=== PATIENT | female | born 1980 | race Two or more races ===

== ENCOUNTER 2018-05-05 16:15 | Inpatient (IN) | payer MEDICAID, OTHER ==
[~2018-05-05] VITALS: Ht 157.5 cm; Wt 75.7 kg
[2018-05-05] MEDS ORDERED: KETOROLAC 30MG/ML VIAL IM ONE (17:45)
[2018-05-05] MEDS ORDERED: MORPHINE SULFATE 10 MG/ML CPJ IM ONE (22:15)
[2018-05-06 00:49] LABS: BASOPHILS % 0.7 % (0.0-2.0); EOSINOPHILS % 0.2 % (0.0-5.0); HEMATOCRIT. 37.7 % (36.0-48.0); LYMPHOCYTES % 24.3 % (20.0-50.0); MEAN CORPUSCULAR HEMOGLOBIN 31.8 pg (28.0-32.0); MEAN CORPUSCULAR VOLUME 92.1 fL (81.0-99.0); MEAN PLATELET VOLUME 9.4 fl (7.4-10.4); MONOCYTES % 4.5 % (2.0-8.0); NEUTROPHILS % 70.3 % (40.0-76.0); PLATELET 302 x1000/uL (130-400); RED BLOOD CELL COUNT 4.09 mill/uL (4.2-5.4); RED CELL DISTRIBUTION WIDTH 13.2 % (11.6-14.6)
[2018-05-06 00:53] LABS: INR 1.1; PROTHROMBIN TIME 11.4 sec (9.1-11.1)
[2018-05-06 00:56] LABS: CHLORIDE 105 mEq/L (98-107)
[2018-05-06 03:57] VITALS: BP 127/86
[2018-05-06 04:00] VITALS: BP 127/86
[2018-05-06] MEDS ORDERED: MORPHINE SULFATE 10MG/5ML ORAL SOLN UDC PO PRN (04:00)
[2018-05-06 08:00] VITALS: BP 96/56
[2018-05-06] MEDS ORDERED: ONDANSETRON HCL 4MG/2ML INJ IV PRN (08:30)
[2018-05-06 09:31] LABS: BASOPHILS % 0.9 % (0.0-2.0); EOSINOPHILS % 1.4 % (0.0-5.0); HEMATOCRIT. 39.2 % (36.0-48.0); HEMOGLOBIN. 13.2 g/dL (12.0-16.0); LYMPHOCYTES % 34.4 % (20.0-50.0); MEAN CORPUSCULAR HEMOGLOBIN 31.5 pg (28.0-32.0); MEAN CORPUSCULAR VOLUME 93.2 fL (81.0-99.0); MEAN PLATELET VOLUME 9.5 fl (7.4-10.4); NEUTROPHILS % 57.3 % (40.0-76.0); PLATELET 290 x1000/uL (130-400); RED CELL DISTRIBUTION WIDTH 13.2 % (11.6-14.6)
[2018-05-06 09:43] LABS: CHLORIDE 108 mEq/L (98-107)
[2018-05-06 12:00] VITALS: BP 87/54
[2018-05-06 13:19] LABS: CLARITY URINE CLOUDY (CLEAR); COLOR URINE YELLOW (YELLOW); KETONES URINE TRACE (NEGATIVE); LEUKOCYTE ESTERASE URINE NEGATIVE (NEGATIVE); NITRITE URINE NEGATIVE (NEGATIVE); OCCULT BLOOD URINE NEGATIVE (NEGATIVE); PH URINE 5.5 (4.5-8.0); PROTEIN URINE NEGATIVE (NEGATIVE); SPECIFIC GRAVITY URINE 1.028 (1.005-1.030)
[2018-05-06] MEDS ORDERED: KETOROLAC 30MG/ML VIAL IV PRN (13:30)
[2018-05-06] MEDS ORDERED: HYDROCODONE/ACETAMINOPHEN 5/325MG TABLET PO PRN (13:30)
[2018-05-06 16:00] VITALS: BP 99/66
[2018-05-06 20:04] VITALS: BP 106/63
[2018-05-07 04:00] VITALS: BP 97/63
[2018-05-07 08:00] VITALS: BP 112/74
[2018-05-07 12:31] VITALS: BP 112/74
== END 2018-05-07 14:15 | disposition home or self-care (01) | DRG 347 ==
LOC: ER 16:15 → 6EST 05-06 00:13 → ENRESERV 05-06 02:11
PROVIDERS: ADMIT Internal Medicine; ATTEND Internal Medicine
DX: S32.019A Unspecified fracture of first lumbar vertebra, initial encounter for closed fracture (principal); E66.9 Obesity, unspecified; S32.029A Unspecified fracture of second lumbar vertebra, initial encounter for closed fracture; S32.039A Unspecified fracture of third lumbar vertebra, initial encounter for closed fracture; W01.0XXA Fall on same level from slipping, tripping and stumbling without subsequent striking against object, initial encounter; Y93.89 Activity, other specified; Y92.89 Other specified places as the place of occurrence of the external cause; Y99.8 Other external cause status; Z68.30 Body mass index [BMI] 30.0-30.9, adult
CPT/HCPCS: 36415; 71045; 72070; 72100; 72128; 72131; 72148; 80048; 83036; 93005; 96372; 97162; 97760; 99285; J1885; J2270